=== PATIENT | female | born 1965 | race Caucasian/White ===

== ENCOUNTER 2022-11-25 09:56 | Emergency (ER) | payer MEDICAID ==
[~2022-11-25] VITALS: Ht 157.5 cm; Wt 118.0 kg
[2022-11-25 10:07] VITALS: BP 156/79
[2022-11-25] MEDS ORDERED: BACITRACIN ZINC OINT UDPKT TOP ONE (11:30)
[2022-11-25 12:53] LABS: BASOPHILS % 0.4 % (0.0-2.0); EOSINOPHILS % 0.5 % (0.0-5.0); HEMOGLOBIN. 12.5 g/dL (12.0-16.0); LYMPHOCYTES % 26.2 % (20.0-50.0); MEAN CORPUSCULAR HEMOGLOBIN 29.9 pg (28.0-32.0); MEAN CORPUSCULAR VOLUME 90.6 fL (81.0-99.0); MEAN PLATELET VOLUME 9.1 fl (7.4-10.4); MONOCYTES % 6.6 % (2.0-8.0); NEUTROPHILS % 66.3 % (40.0-76.0); PLATELET 241 x1000/uL (130-400); RED BLOOD CELL COUNT 4.19 mill/uL (4.2-5.4); RED CELL DISTRIBUTION WIDTH 14.3 % (11.6-14.6)
[2022-11-25 13:09] LABS: CHLORIDE 102 mEq/L (98-107)
[2022-11-25] MEDS ORDERED: DOXY100T2 MT (14:05)
[2022-11-25] MEDS ORDERED: NAPR-681 MT (14:05)
== END 2022-11-25 14:45 | disposition home or self-care (01) ==
LOC: ER 09:56
DX: L03.90 Cellulitis, unspecified (principal); R74.01 Elevation of levels of liver transaminase levels; E11.9 Type 2 diabetes mellitus without complications; E78.00 Pure hypercholesterolemia, unspecified; I10 Essential (primary) hypertension
CPT/HCPCS: 36415; 80053; 83605; 85025; 99283